=== PATIENT | female | born 1985 | race Caucasian/White ===

== ENCOUNTER → 2016-05-07 | Outpatient (CLI) | payer MEDICAID ==
--- NOTE | 2016-05-07 11:18 | US ---
Ultrasound Thyroid History: Hyperthyroidism. E05.90. Technique: Longitudinal and transverse ultrasound imaging of the thyroid gland. Findings: Right lobe of the thyroid measures 4.5 x 1.6 x 1.1 cm. Left lobe of the thyroid measures 4. 4 x 1.3 x 1.2 cm. Isthmic thickness is 0.2 cm. In the left lobe of the thyroid, there is an incidental tiny 2 x 1 x 1 mm benign hypoechoic nodule or colloid cyst. No suspicious thyroid nodules. Impression: No suspicious thyroid nodules.
== END ==
LOC: FIMAGING 10:10
PROVIDERS: ATTEND Pediatrics
DX: E05.90 Thyrotoxicosis, unspecified without thyrotoxic crisis or storm (principal)